=== PATIENT | male | born 1945 | race Caucasian/White ===

== ENCOUNTER 2016-11-08 11:50 | Emergency (ER) | payer MEDICARE, BC ==
[~2016-11-08] VITALS: Wt 75.0 kg
[2016-11-08 11:54] VITALS: Wt 75.0 kg
[2016-11-08] MEDS ORDERED: SOD CHLORIDE 0.9% 1,000 ML IV STA (12:12)
[2016-11-08 12:37] LABS: ADD SCAN DIFF NO
[2016-11-08 12:41] LABS: ABNORMAL IP MESSAGE 1; HEMATOCRIT 43.3 % (42.0-52.0); MEAN CORPUSCULAR HGB CONC 32.3 g/dl (32.0-37.0); MEAN CORPUSCULAR VOLUME 89.6 fl (82.0-101.0); MEAN PLATELET VOLUME 10.1 fl (7.4-10.4); PLATELET COUNT 216 10^3/UL (140-415); RED BLOOD COUNT 4.83 10^6/ul (4.70-6.10); WHITE BLOOD COUNT 11.1 10^3/ul (4.8-10.8)
[2016-11-08 12:50] LABS: BASOPHILS % 0.3 % (0.0-2.0); EOSINOPHILS # 0.1 10^3/ul (0.0-0.5); EOSINOPHILS % 0.7 % (0.0-7.0); LYMPHOCYTES # 4.4 10^3/ul (0.8-2.9); LYMPHOCYTES % 40.6 % (15.0-51.0); MONOCYTE # 0.9 10^3/ul (0.3-0.9); MONOCYTES % 8.4 % (0.0-11.0); NEUTROPHIL # 4.8 10^3/ul (1.6-7.5); NEUTROPHILS % 44.3 % (39.0-77.0)
[2016-11-08 12:56] LABS: INR 0.99; PROTIME 13.1 Sec (12.2-14.2)
[2016-11-08 12:57] LABS: PARTIAL THROMBOPLASTIN TIME 25.4 Sec (25.0-35.0)
[2016-11-08 12:59] LABS: CHLORIDE 98 mmol/L (97-110)
[2016-11-08 13:00] LABS: POTASSIUM 3.7 mmol/L (3.5-5.1); SODIUM 137 mmol/L (135-144)
[2016-11-08 13:02] LABS: CREATININE 2.41 mg/dl (0.61-1.24)
[2016-11-08] MEDS ORDERED: LEVO50TA74 PO (13:02)
[2016-11-08 13:03] LABS: ANION GAP 17 (8-16); BLOOD UREA NITROGEN 36 mg/dl (7-20); CALCIUM 9.6 mg/dl (8.4-10.2); CARBON DIOXIDE 26 mmol/L (21-31); GLUCOSE 100 mg/dl (70-220)
[2016-11-08] MEDS ORDERED: ENAL5TAB PO (13:03)
[2016-11-08] MEDS ORDERED: TACR1CAP PO (13:04)
[2016-11-08] MEDS ORDERED: ATOR20TA38 PO (13:04)
[2016-11-08] MEDS ORDERED: MONT10TA24 PO (13:05)
[2016-11-08] MEDS ORDERED: SITA50TA2 PO (13:05)
[2016-11-08] MEDS ORDERED: MYCO360T3 PO (13:05)
[2016-11-08 13:08] LABS: B-TYPE NATRIURETIC PEPTIDE 624 PG/ML (0-125)
[2016-11-08 13:13] LABS: TROPONIN-I < 0.012 ng/ml (0.00-0.12)
--- NOTE | 2016-11-08 13:14 | RADRPT ---
PROCEDURE: XR Chest 1 View. CLINICAL INDICATION: Abnormal breath sounds, syncope TECHNIQUE: AP view of the chest was obtained. COMPARISON: None. FINDINGS: The cardiomediastinal silhouette is within normal limits. Mediasternotomy wires and surgical clips o verlie the heart. The lungs are hyperexpanded. Subsegmental atelectasis is noted in the bilateral lower lobes. No consolidations are identified. No pneumothorax is seen. Osseous structures are int act. IMPRESSION: Hyperexpanded lungs. Subsegmental atelectasis in the bilateral lower lobes. RPTAT: AA .Vj Urena MD, Date Time Electronically viewed and signed by .Vj Urena MD, MD on 11/08/2016 13:13 .P/
--- NOTE | 2016-11-08 14:16 | ERA ---
ER Documentation Chief Complaint Date/Time DATE: 11/08/16 TIME: 13:57 Chief Complaint SYNCOPAL EPISODE WHILE IN CARDIAC REHAB. BS 115, LOW BP, DURATION 1 MIN HPI This is 71-year-old male with a history of a cardiac transplant. The patient was at the cardiac rehab center upstairs doing some exercise, which she says she had no chest pain or symptoms whatsoever. He said he was taking a break he was sitting in a chair he suddenly began feeling a little dizzy. He had no chest pain no shortness of breath or diaphoresis. He called out to 1 of the staff members that he did not feel well and she came over to see him when she did he was not responding very well. Pepper magallon was called and ER staff responded. The patient refused to come to the ER. He said he felt better. He sat there for 5-10 minutes longer and the same thing happened again. This time it was reported to be about 1 minute duration where the patient was not responding. His eyes are open but he was not responding at all and that he gradually came to fingerstick at that time was 150. His blood pressure at that time was 60-70 systolic here in the emergency room he says he has no complaints whatsoever and feels fine he is very reluctant to do any testing. He said he wanted to go home but I told him that something dangerous could have happened and will need a syncopal workup ROS All systems reviewed and are negative except as per history of present illness. Medications Home Meds Reported Medications Sitagliptin* (Januvia*) 50 Mg Tablet, PO DAILY, #30 TAB 11/08/16 Mycophenolate Sodium* (Mycophenolic Acid*) 360 Mg Tablet., 360 MG PO Q12, TAB 11/08/16 Montelukast Sodium* (Montelukast Sodium*) 10 Mg Tablet, 10 MG PO QHS, #30 TAB 11/08/16 Atorvastatin Calcium* (Atorvastatin Calcium*) 20 Mg Tablet, 20 MG PO QHS, #30 TAB 11/08/16 Tacrolimus* (Tacrolimus*) 1 Mg Capsule, 1 MG PO Q12, CAP 11/08/16 Enalapril Maleate* (Enalapril Maleate*) 5 Mg Tablet, 5 MG PO DAILY, TAB 11/08/16 Levothyroxine Sodium* (Levothyroxine Sodium*) 50 Mcg Tablet, 50 MCG PO BEFORE BREAKFAST, #30 TAB 11/08/16 Allergies Allergies: Coded Allergies: vancomycin (Verified Allergy, Mild, rash, 11/08/16) PMhx/Soc Hx Alcohol Use: No Hx Substance Use: No Hx Tobacco Use: No Smoking Status: Former smoker FmHx Family History: No coronary disease Physical Exam Vitals Vital Signs Date Time Temp Pulse Resp B/P Pulse Ox O2 Delivery O2 Flow Rate FiO2 11/08/16 11:55 98.8 94 20 124/68 99 11/08/16 11:54 98.5 95 18 124/83 100 Physical Exam Const: Well-developed, well-nourished Head: Atraumatic, normocephalic Eyes: Normal Conjunctiva, PERRLA, EOMI, normal sclera, no nystagmus ENT: Normal External Ears, Nose and Mouth, moist mucus membranes. Neck: Full range of motion. No meningismus, no lymphadenopathy. Resp: Clear to auscultation bilaterally, no wheezing, rhonchi, rales Cardio: Regular rate and rhythm, no murmurs, S1 S2 present Abd: Soft, non tender x 4, non distended. Normal bowel sounds, no guarding or rebound, no pulsitile abdominal masses or bruits Skin: No petechiae or rashes, no ecchymosis , no maculopapular rash Back: No midline or flank tenderness Ext: No cyanosis, or edema, FROM x 4, normal inspection, neurovascularly intact x 4 Neur: Awake and alert, STR 5/5 x 4, sensation intact x 4, no focal findings, cerebellum intact Psych: Normal Mood and Affect Result Diagram: 11/08/16 1215 11/08/16 1215 Results 24 hrs Laboratory Tests Test 11/08/16 12:15 White Blood Count 11.110^3/ul Red Blood Count 4.8310^6/ul Hemoglobin 14.0g/dl Hematocrit 43.3% Mean Corpuscular Volume 89.6fl Mean Corpuscular Hemoglobin 29.0pg Mean Corpuscular Hemoglobin Concent 32.3g/dl Red Cell Distribution Width 14.0% Platelet Count 92839^3/UL Mean Platelet Volume 10.1fl Neutrophils % 44.3% Lymphocytes % 40.6% Monocytes % 8.4% Eosinophils % 0.7% Basophils % 0.3% Nucleated Red Blood Cells % 0.0/100WBC Neutrophils # 4.810^3/ul Lymphocytes # 4.410^3/ul Monocytes # 0.910^3/ul Eosinophils # 0.110^3/ul Basophils # 0.010^3/ul Nucleated Red Blood Cells # 0.010^3/ul Prothrombin Time 13.1Sec Prothrombin Time Ratio 1.0 INR International Normalized Ratio 0.99 Activated Partial Thromboplast Time 25.4Sec Sodium Level 137mmol/L Potassium Level 3.7mmol/L Chloride Level 98mmol/L Carbon Dioxide Level 26mmol/L Anion Gap 17 Blood Urea Nitrogen 36mg/dl Creatinine 2.41mg/dl Glucose Level 100mg/dl Calcium Level 9.6mg/dl Troponin I < 0.012ng/ml B-Type Natriuretic Peptide 624PG/ML Current Medications Medications (Trade) Dose Ordered Sig/Mimi Route PRN Reason Start Time Stop Time Status Last Admin Dose Admin Sodium Chloride (NS) 1,000 ml @ 1,000 mls/hr Q1H STAT IV 11/08/16 12:12 11/08/16 13:11 DC Procedures/MDM PROCEDURE: XR Chest 1 View. CLINICAL INDICATION: Abnormal breath sounds, syncope TECHNIQUE: AP view of the chest was obtained. COMPARISON: None. FINDINGS: The cardiomediastinal silhouette is within normal limits. Mediasternotomy wires and surgical clips overlie the heart. The lungs are hyperexpanded. Subsegmental atelectasis is noted in the bilateral lower lobes. No consolidations are identified. No pneumothorax is seen. Osseous structures are intact. IMPRESSION: Hyperexpanded lungs. Subsegmental atelectasis in the bilateral lower lobes. RPTAT: AA .Vj Urena MD, MD Date Time Electronically viewed and signed by .Vj Urena MD, MD on 11/08/2016 13:13 .P/ CC: JORGE FLORES DO EKG: Rate/Rhythm: Normal sinus rhythm with frequent premature ventricular complexes and premature atrial complexes inverted T-wave in lead III QRS, ST, QT: NORMAL ID, QRS, QT] Impression: abNORMAL EKG The patient refused CT scan of the head. The patient is refusing any further care he wants to go home. He says that he feels fine. Had an extensive discussion at bedside with him about the necessity to finish his workup and to be admitted to the hospital for a syncopal workup. The patient says he is not going to do this and that he knows his body at the same thing happened while he was in [facility] and he was fine then. I explained to him that could be some serious pathology going on that could be life-threatening. I told him if he leaves he runs the risk of . He says he understands this. The patient is awake alert coherent to make decisions. He says he will sign out AGAINST MEDICAL ADVICE. He says his is on the way here to pick him up now Departure Diagnosis: Primary Impression: Syncope Qualified Code: R55 - Syncope, unspecified syncope type Condition: JORGE Zhang DO November 08, 2016 14:12
== END 2016-11-08 14:46 | disposition left against medical advice (07) ==
LOC: E/R 11:50
DX: R55 Syncope and collapse (principal); I10 Essential (primary) hypertension; E11.9 Type 2 diabetes mellitus without complications; Z79.84 Long term (current) use of oral hypoglycemic drugs; Z87.891 Personal history of nicotine dependence; Z95.0 Presence of cardiac pacemaker
CPT/HCPCS: 36415; 71010; 80048; 83880; 84484; 85025; 85610; 85730; 99285; J7030